=== PATIENT | female | born 1955 | race Hispanic/Latino ===

== ENCOUNTER 2020-03-31 05:50 | Day surgery (SDC) | payer MEDICARE ==
[2020-03-30 15:28] LABS: BASOPHILS % (AUTO) 0.5 % (0.0-5.0); EOSINOPHILS % (AUTO) 2.5 % (0.0-8.0); HEMATOCRIT 42.4 % (36-48); LYMPHOCYTES % (AUTO) 12.2 % (21.0-51.0); MEAN CORPUSCULAR HEMOGLOBIN 30.3 pg (27.0-33.0); MEAN CORPUSCULAR HGB CONC 32.8 g/dL (32.0-36.0); MEAN CORPUSCULAR VOLUME 92.4 fL (79-99); MONOCYTES % (AUTO) 7.5 % (3.0-13.0); NEUTROPHILS % (AUTO) 76.6 % (40.0-77.0); PLATELET COUNT (AUTO) 175 K/uL (130-400); RED BLOOD CELL COUNT(AUTO) 4.59 MIL/uL (4.00-5.50); RED CELL DISTRIBUTION WIDTH 15.1 % (11.0-15.5); WHITE BLOOD COUNT (AUTO) 10.3 K/uL (4.8-10.8)
[2020-03-30 15:35] VITALS: BP 193/78
[2020-03-30 15:38] LABS: CREATININE 3.9 mg/dL (0.5-1.5)
[2020-03-30 15:41] LABS: INR 1.04 (0.85-1.15); PROTHROMBIN TIME 11.1 SEC (9.6-11.6)
[2020-03-30 15:42] LABS: PARTIAL THROMBOPLASTIN TIME 45.3 SEC (26.3-35.5)
[2020-03-31] VITALS (11 sets, daily range): BP systolic 130–158; BP diastolic 64–88
[~2020-03-31] VITALS: Ht 154.9 cm; Wt 49.8 kg
[~2020-03-31 05:50] MED LIST: AMLO-258 PO; LISI20TA24 PO; METO25TA6 PO; SEVE800T7 PO; SUCR500T PO; vitamin b 12 PO
[2020-03-31] MEDS: CEFAZOLIN SODIUM 1 GM VIAL IVP SCH ×2 (06:00→07:35)
[2020-03-31] MEDS ORDERED: 0.9% NACL 500ML IV.SOLN 500 ML IV ONE (06:21)
[2020-03-31 07:04] LABS: CREATININE 6.2 mg/dL (0.5-1.5); POTASSIUM 4.6 mmol/L (3.5-5.1)
[2020-03-31] MEDS ORDERED: CEFAZOLIN SODIUM 1 GM VIAL ONE (07:04)
[2020-03-31] MEDS ORDERED: KETAMINE 50MG/ML SYRINGE 50 MG/ML DISP.SYRIN IV ONE (07:34)
[2020-03-31] MEDS ORDERED: PROPOFOL 1000 MG/100 ML 100 ML IV ONE (07:34)
[2020-03-31] MEDS ORDERED: ROPIVACAINE 0.5% 5MG/ML 30ML IJ ONE (07:35)
[2020-03-31] MEDS ORDERED: MIDAZOLAM HCL 1 MG/ML 2ML VIAL ONE (07:37)
[2020-03-31] MEDS ORDERED: EPHEDRINE SULFATE 50 MG/ML AMPULE ONE (08:24)
== END 2020-03-31 10:40 | disposition home or self-care (01) ==
LOC: DAH 05:50
PROVIDERS: ATTEND Thoracic Surgery (Cardiothoracic Vascular Surgery)
DX: I12.0 Hypertensive chronic kidney disease with stage 5 chronic kidney disease or end stage renal disease (principal); N18.6 End stage renal disease; Z20.828 Contact with and (suspected) exposure to other viral communicable diseases; Z99.2 Dependence on renal dialysis; Z79.899 Other long term (current) drug therapy
CPT/HCPCS: 36415 ×2; 36821; 71045; 80048 ×2; 82948; 85025; 85610; 85730; 86850; 86900; 86901; 87426; 93005; A4215; A4221; A4222; A4649; A4663; A6207; A6260; C1713 ×2; G0168; J0690 ×2; J1644; J2250; J2704; J2795; J3490 ×2; J7030; J7040 ×2; U0003